=== PATIENT | male | born 1945 | race Caucasian/White ===

== ENCOUNTER 2016-05-02 07:55 | Inpatient (IN) | payer MEDICARE, OTHER ==
[~2016-05-02] VITALS: Ht 175.3 cm; Wt 101.2 kg
--- NOTE | ~2016-05-02 | ECH ---
Transthoracic Echocardiography Report (TTE) Demographics Patient Name RONNIE GOODRICH Date of Study 05/02/2016 Patient Number [id number] Visit Number [id number] Date of 1945 Room Number 301 Accession Number [id number] Gender Male Age 70 year(s) Referring Kathy PRATT Medical Esthetician Marian [facility] Physician Pedro Physician Interpreting King Martin Montiel MD Stereo Map Plotter Operator Physician Supervising Ordering Physician Kathy Vasquez MD/[facility] Nurse Stress Teaching Fellow Conclusions Summary Technically fair exam. The estimated left ventricular ejection fraction is 60-65%. Mild left ventricular posterior wall hypertrophy. Diastolic assessment reveals Grade I diastolic dysfunction. No significant valvular abnormalities. Procedure Type of Study TTE procedure:Echo Complete SF. Procedure Date Date: 05/02/2016 Start: 11:57 AM Technical Quality: Fair due to body habitus. Indications:Acute OR. Appropriate Use Criteria: 9 Height: 69 inches Weight: 224.87 pounds BSA: 2.17 m Rhythm: Within normal limits HR: 58 bpm BP: 128/67 mmHg Allergies - No known allergies. M-Mode/2D Measurements LV Diastolic Dimension: 4.06 cm LV Systolic Dimension: 3.47 cm LV Septum Diastolic: 0.97 cm LV PW Diastolic: 1.22 cm AO Root Dimension: 3.13 cm Cardiac Output: 4.49 l/min LA Dimension: 4.17 cm Cardiac Index: 2.07 l/min*m RV Diastolic Dimension: 3.16 cm LA volume index: 26 ml/m LVOT: 2.35 cm LVOT VTI: 17.84 cm RV Base: 4.1 cm LV Stroke volume: 77.34 ml RV Mid: 2.4 cm LV Stroke volume index: 35.64 ml/m RV Length: 7.6 cm TAPSE: 2.3 cm Doppler Measurements AV Peak Velocity: 1.2 m/s MV Peak E-Wave: 0.48 m/s AV Peak Gradient: 5.76 mmHg MV Peak A-Wave: 0.66 m/s AV Mean Gradient: 3.6 mmHg MV E/A Ratio: 0.73 LVOT Peak Velocity: 0.93 m/s MV P1/2t: 78.1 msec AV Area (Continuity):3.17 cm MV Deceleration Time: 277.6 msec MV Area (PHT): 2.82 cm PV Peak Velocity: 1.03 m/s PV Peak Gradient: 4.28 mmHg RA Area: 15.21 cm Findings Left Ventricle The left ventricle is normal in size . Mild left ventricular posterior wall hypertrophy. Diastolic assessment reveals Grade I diastolic dysfunction. Right Ventricle Normal right ventricle structure and function. Left Atrium Normal left atrial size. Right Atrium Normal right atrial size. Mitral Valve Normal mitral valve structure and function. Trivial mitral regurgitation by color Doppler. Aortic Valve The aortic valve is mildly sclerotic. Tricuspid Valve Normal tricuspid valve structure and function. Pulmonic Valve Normal pulmonic valve structure and function. Pericardial Effusion Epicardial fat pad noted. Miscellaneous Visualized portions of the aortic root and ascending aorta appear normal in size. Pleural Effusion No evidence of pleural effusion. Signature
--- NOTE | ~2016-05-02 | CATH ---
Cardiac Diagnostic + PCI Report Demographics Patient Name JOLEEN Montiel Gender Male Date of 1945 Age 70 year(s) Patient Number [id number] Date of Study 05/02/2016 Visit Number [id number] Room Number 424 Corporate ID Ht 175.26 cm Wt 102 kg Accession Number [id number] BSA 2.17 m kg/m Referring Odilon Rich MD Primary Physician Physician Juaquin Chavez MD Secondary Physician Physician Pedro Diagnostic Kathy PRATT Assisting Physician Physician Pedro Interventional Kathy PRATT Physician Draw Press Operator Physician Pedro Findings and Conclusions Diagnostic Findings and Conclusion Acute Inferior STEMI with Bradycardia. 100% occluded dRCA Normal LVEDP Diagnostic Recommendations Proceed with primary PCI of RCA Interventional Findings and Conclusion Successful PCI of 100% occluded dRCA with 2.75x20 Synergy RIAZ and buddhist of DIANA III flow. Interventional Recommendations Will consider a stress in the near future to assess the other lesions noted. Dual anti-platelet therapy for a minimum of 1 year. Follow up with [facility] provider 7 days post-discharge. Procedure Description The patient was brought emergently to the diagnostic cardiac catheterization laboratory in the fasting, non-sedated state. Informed consent was obtained in the written and verbal form after the risks and benefits were explained. The patient and had no further questions and agreed to proceed. The planned puncture-incision site(s) were shaved and prepped with ChloraPrep and draped in the usual sterile manner. Conscious sedation, supplemental oxygen, and pain control medications were delivered by a registered nurse under physician guidance. Surface ECG rhythm, blood pressure measurement, and pulse oximetry were monitored throughout the procedure. Arterial access. The right radial access site was infiltrated with lidocaine. The vessel was entered with the Seldinger technique. A 6 Fr sheath was advanced into the vessel and used for catheter placement. Selective right coronary angiography. A TIG catheter was advanced into the right coronary vessel ostium under fluoroscopic guidance. Contrast was injected by hand. Images were obtained in multiple projections. Selective left coronary angiography. A TIG catheter was advanced into the left coronary vessel ostium under Fluoroscopic guidance. Contrast was injected by hand. Images were obtained in multiple projections. Angioplasty and Stent Placement: A AL .75 guiding catheter was used to intubate the vessel. A Prowater 0.14 wire was then used to cross the lesion. A 2.0x12 Emerge balloon catheter was placed across the lesion and inflated. The balloon catheter was then removed. A 2.75x20 Synergy Drug Eluting Stent was placed and inflated. Post placement angiograms were performed. Left heart catheterization. A angled PIG catheter was advanced across the aortic valve to the left ventricle under fluoroscopic guidance. Resting hemodynamics were obtained. Arterial artery hemostasis was achieved using 11 cc in a TR Band. The patient was transferred to the ICU via cart accompanied by a laborer hoisting nurse. The patient left the laboratory in stable condition. Diagnostic Cath Status: Emergency Interventional Cath Status: Emergency Procedure Procedure Type Diagnostic procedure:Angiography:, Coronary Angios w/[facility] PCI procedure:Drug Eluting Coronary Stent:, RCA Indications: Acute SC, Hyperlipidemia, Hypertension and Diabetes. The procedure was explained in detail to the patient. Risks, complications and alternative treatments were reviewed. Written consent was obtained. Medications Reviewed with Patient prior to Procedure. Complications: No Complication. Angiographic Findings Dominance: Right Cardiac Arteries and Lesion Findings LMCA: Normal (0% Stenosis). LAD: Abnormal. Lesion on Mid LAD: 20% stenosis . Lesion on Mid LAD: Distal subsection.70% stenosis . Lesion on 1st Diag: Mid subsection.70% stenosis . LCx: Abnormal. Lesion on Mid CX: 70% stenosis . RCA: Abnormal. Lesion on Dist RCA: 100% stenosis 20 mm length reduced to 0%. Pre procedure DIANA 0 flow was noted. Post Procedure DIANA III flow was present. The guidewire cross was successful.Culprit lesion. Treatment results:Interventional treatment was successful. Devices used - PROWATER WIRE 0.014" X 180CM. Number of passes: 1. - CATH BAL RX EMERGE 2.0X12. 1 inflation(s) to a max pressure of: 8 janice. - CATH STENT SYNERGY 2.75 X 20. 1 inflation(s) to a max pressure of: 16 janice. Lesion on Prox RCA: 30% stenosis . Lesion on Mid RCA: 60% stenosis . Coronary Tree Procedure Data Procedure Date Date: 05/02/2016Start: 08:19 AMEnd: 09:22 AM Entry Locations - Percutaneous access was performed through the Right Radial artery (Primary location). A 6 Fr sheath was inserted. Hemostasis was successfully obtained using a TR band. Closure Comments: 11 cc air in band. Procedure Medications Order and Administration + + + + + !Time !Medication !Dosage !Route ! + + + + + !05/02/2016 !SF Post Radial Cocktail: 200mcg ! !I.A. ! !08:20 AM !Nitro, 2.5 Verapamil ! ! ! + + + + + !05/02/2016 !Brilinta (Ticagrelor) (ACC_20) !180 mg !P.O. ! !08:26 AM ! ! ! ! + + + + + !05/02/2016 !Heparin (ACC_3) !3000 units !I.V. ! !08:26 AM ! ! ! ! + + + + + !05/02/2016 !Integrilin (ACC_7) !180 mcg/kg !I.V. bolus! !08:26 AM ! ! ! ! + + + + + !05/02/2016 !Integrilin (ACC_7) !2 mcg/kg/min!I.V. drip ! !08:28 AM ! ! ! ! + + + + + !05/02/2016 !Integrilin (ACC_7) !180 mcg/kg !I.V. bolus! !08:37 AM ! ! ! ! + + + + + !05/02/2016 !Nitroglycerin !200 mcg !I.C. ! !08:38 AM ! ! ! ! + + + + + Devices Used - A6F TIG CATHETERwas used for:Right coronary angiography. - AGUIDE CATHETER 6FR AL .075 100CMwas used for:RCA Intervention. - ACATH 6FR PIG 145 110CM CATHETERwas used for:LV Pressures. Contrast Material - Isovue 08908 ml Fluoroscopy Time: Diagnostic: 3:54 minutes. Total: 3:54 minutes. Fluoroscopy Dose: Diagnostic: 1031 mGy. Total: 1031 mGy. Estimated Blood Loss: 5 ml. Medical History Allergies - No known allergies. Risk Factors The patient risk factors include:hypercholesterolemia, hypertension, insulin-treated diabetes mellitus, last creatinine: 1.4 mg/dl, creatinine clearance: 70.83 ml/min and dyslipidemia. Admission Data Admission Date: 05/02/2016 Admission Time: 08:51 AM Admit Source: Emergency department Insurance Payors: Medicare. Clinical Evaluation Leading to Procedure Diagnosed on 05/02/2016 08:00 AM. - The patient's CAD presentation was assessed as: STEMI.The symptom onset was first noted on 05/02/2016 07:25 AM Hemodynamics Condition: Rest Estimated: Heart Rate: 32 bpm Pressures (mmHg) +-----+ + !Site !Pressure ! +-----+ + !AO !120/51 (73) ! +-----+ + Shunts Oxygen Values O2 Capacity 206.72 Condition: Post Angioplasty Estimated: Heart Rate: 75 bpm Pressures (mmHg) +-----+ + !Site !Pressure ! +-----+ + !AO !128/57 (90) ! +-----+ + !LV !108/0 ,2 ! +-----+ + !AO !105/51 (73) ! +-----+ + !LV !107/0 ,3 ! +-----+ + Valve Gradients and Areas + +---------+---------+---------+ +---------+ + !Valve !Peak !Mean !Area !Index !Flow !Source ! + +---------+---------+---------+ +---------+ + !Aortic !2 !0 ! ! ! ! ! + +---------+---------+---------+ +---------+ + !Aortic !2 !0 ! ! ! ! ! + +---------+---------+---------+ +---------+ + Shunts Oxygen Values O2 Capacity 206.72 Discharge Data Discharge Date: 05/04/2016 Hospital Status: Inpatient Signatures
[2016-05-05] MEDS ORDERED: METFORMIN HCL1000 M1 PO (15:04)
[2016-05-05] MEDS ORDERED: ZYLOPRIM-DPS300 MG PO (15:04)
[2016-05-05] MEDS ORDERED: DIOVAN160 MG PO (15:04)
[2016-05-05] MEDS ORDERED: DILTIAZEM 24HR300 MG PO (15:04)
[2016-05-05] MEDS ORDERED: METOPROLOL TART25 MG PO (15:04)
[2016-05-05] MEDS ORDERED: LYRICA50 MG PO (15:04)
[2016-05-05] MEDS ORDERED: NOVOLIN R SQ (15:05)
[2016-05-05] MEDS ORDERED: [UNRECOGNIZED DRUG - OTHER] SQ (15:05)
[2016-05-05] MEDS ORDERED: HUMULIN R100 UNIT/1 SQ (15:05)
[2016-05-05] MEDS ORDERED: GATIFLOXACIN2.5 ML OS (15:06)
[2016-05-05] MEDS ORDERED: ASA CHILDREN'S81 MG PO (15:06)
[2016-05-05] MEDS ORDERED: PRED FORTE 1% DP5 ML OS (15:06)
[2016-05-05] MEDS ORDERED: PROLENSA3 ML OS (15:06)
[2016-05-05] MEDS ORDERED: LIPITOR DPS20 MG PO (15:07)
[2016-05-05] MEDS ORDERED: BRILINTA90 MG PO (15:07)
[2016-05-05] MEDS ORDERED: PEPCID DPS20 MG PO (15:07)
--- NOTE | 2016-05-10 12:50 | CO ---
ADMIT: 05/02/2016 RM/LOC: 301 [facility] MR#: [id number] [address] [address] JOLEENRONNIE [address] [place] [address] Consultation SEX: M AGE: 70 : 1945 DATE OF CONSULTATION: 05/02/2016 ATTENDING PHYSICIAN: Pedro Chavez CONSULTING PHYSICIAN: Benji Donald MD REASON FOR CONSULTATION: Relationship Management Lead with medical management, diabetes management. HISTORY OF PRESENT ILLNESS: The patient is a very pleasant 70-year-old gentleman with past medical history of hypertension, hyperlipidemia, type 2 diabetes mellitus, who presents to [facility] Emergency Room today with nausea, arm pain, and chest discomfort and dyspnea, was found to be having an ST-elevation SC, inferior in nature, taken to the pathology laboratory aides teacher. He was noted to be bradycardic on admission as well, and was found to have significant right-sided lesions as well as other significant right coronary lesions, and he underwent drug-eluting stent placement. His bradycardia improved and he was transferred to the ICU. He was noted to have to be hypercalcemic with calcium corrected near 12 and I am asked to see him for assistance in medical management and diabetes management, and also to address his hypercalcemia. Overall, the patient is feeling better. No more chest pain or shortness of breath. He is feeling better. No nausea and vomiting are noted. He has no new edema, no recent medication changes noted and overall, notes his blood sugars have been running well. He follows with Endocrinology. The patient notes he has already eaten and is feeling better and ready to make some lifestyle changes to help his coronary artery disease. PAST MEDICAL HISTORY: 1. Hypertension. 2. Obstructive sleep apnea, on CPAP. 3. Allergic rhinitis. 4. Painful peripheral diabetic neuropathy. 5. Diabetes mellitus type 2. 6. History of gout. 7. Erectile dysfunction. 8. History of DVT. 9. Hyperlipidemia. 10.History of kidney stones. 11.Recent cataract extractions. ALLERGIES: HE HAS A PROTONIX ALLERGY. CURRENT MEDICATIONS: Include: 1. Metoprolol. 2. Diltiazem. 3. Metformin. 4. Valsartan. 5. Simvastatin. 6. Allopurinol. ADMIT: 05/02/2016 RM/LOC: 301 [facility] MR#: [id number] [address] [address] RONNIE GOODRICH Tiana [address] [place] [address] Consultation SEX: M AGE: 70 : 1945 7. Lyrica. 8. Humulin U 500. 9. Aspirin. 10.Prednisolone. 11.Gatifloxacin. 12.Prolensa eyedrops. PAST SURGICAL HISTORY: Includes cholecystectomy and laser lithotripsy for kidney stones. FAMILY HISTORY: Father with lung cancer and maternal grandmother with diabetes. SOCIAL HISTORY: He is a nonsmoker, occasional drinker. He is . 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 REVIEW OF SYSTEMS: As noted above. All systems are reviewed and are negative. VITAL SIGNS: 97, 68, 13, 131/68, 96% on room air. GENERAL: This is an overweight gentleman. He is in no apparent distress. He is alert and oriented x3. Cooperative and pleasant to examiner. He appears stated age. HEENT: Normocephalic and atraumatic. Mucous membranes little dry. NECK: Supple. LUNGS: Clear. HEART: Regular. ABDOMEN: Soft, nontender, and nondistended. Positive bowel sounds throughout. EXTREMITIES: Show chest some trace to 1+ ankle and calf edema. He has good peripheral pulses. His skin appears normal his neurologic exam shows cranial nerves intact no focal deficits are noted. LABORATORY AND DIAGNOSTIC STUDIES: His lab work showed hemoglobin of 15.2, white count is 14.6, sodium 142, potassium 4.6, BUN is 20 creatinine 1.4 his bicarb is 18 with a chloride of 111, his calcium was 11.9, corrected to 12.2, his CK was 139, his MB was 3.1, his troponin was 0.135 his EKG initially did show a heart rate of 36 beats per minute with noted ST elevation in II, III, and aVF. We did have reciprocal changes in AVR and her depression in AVR and aVL. His EKG post reperfusion showed a rate of [address] elevation resolving. ASSESSMENT AND PLAN: 1. ST-segment elevation myocardial infarction. 2. Number one acute coronary syndrome/ST segment elevation SC. 3. Coronary artery disease, status post percutaneous coronary intervention drug-eluting stent to his RCA. 4. Bradycardia, resolved. 5. Hypercalcemia. 6. Diabetes mellitus type 2. 7. Hypertension. ADMIT: 05/02/2016 RM/LOC: 301 [facility] MR#: [id number] [address] [place] [id number] RONNIE GOODRICH [address] [place] [address] Consultation SEX: M AGE: 70 : 1945 8. Hyperlipidemia. 9. Showed strep he has. 10.Gastroesophageal reflux disease. At this point, the patient is feeling much better. Much thanks to Dr. Chavez for his assistance. Risk factor modification, aspirin statin, Brilinta we need to make sure we continue to control his diabetes and heart rates are better. We will plan on sliding scale insulin for right now. We are not any use his U 500. Discussed diet exercise weight loss and lifestyle modifications with the patient. He has little hypercalcemia today and I am going to grab a sedimentation rate and CRP. We have already checked a vitamin her vitamin D and PTH are pending. We are going to grab SPEP and serum free light chains. Right now, it does sound like he uses some Tums on a regular basis. I wonder if that could be our culprit as he says some days he will use up to six so we will investigate that will keep him on some Pepcid for reflux and dyspepsia, have him on his home CPAP and will follow along throughout this hospitalization. Benji Donald MD/ leonela JOB #: [id number] CC: Pedro Chavez, Attending Physician Benji Donald, Family Physician
--- NOTE | 2016-05-10 14:49 | HP ---
ADMIT: 05/02/2016 RM/LOC: 301 [facility] MR#: [id number] [address] [address] RONNIE GOODRICH [address] [place] [address] History and Physical SEX: M AGE: 70 : 1945 Corrected: 05/02/2016 1139 tone DATE OF SERVICE: REASON FOR ADMISSION: Inferior ST-elevation myocardial infarction. HISTORY OF PRESENT ILLNESS: Ronnie is a 70-year-old male, who has no prior cardiac history, but does have history of hypertension, hyperlipidemia, and diabetes, who presented this morning with acute inferior ST-elevation myocardial infarction. He states about 4 a.m., he awoke. He had some discomfort in his arms but did not have any chest pain. He said he was able to go back to sleep. He then awoke and still said he just was not quite comfortable but then had sudden onset of a pressure in his chest about 30 minutes prior to arrival, which was about 7:30 a.m. He was short of breath and sweaty. He had his drive him to the emergency room. His initial EKG showed inferior ST elevation myocardial infarction with bradycardia, which appeared to be sinus bimal with heart rate of 36 but the P waves are difficult to identify and it may have been a two-to-one heart block. We were called emergently by Dr. Echevarria to evaluate him in the emergency room. He says otherwise, he has been feeling well recently. He just had cataract surgery on Friday. PAST MEDICAL HISTORY: 1. Hypertension. 2. Hyperlipidemia. 3. Diabetes. 4. Erectile dysfunction. ALLERGIES: NO KNOWN DRUG ALLERGIES. MEDICATION: 1. Lyrica 50 mg at bedtime. 2. Metformin 1000 mg twice a day. 3. Humulin subcutaneous twice a day. 4. Simvastatin 20 mg at bedtime. 5. Allopurinol 300 mg daily. 6. Metoprolol 25 mg twice a day. 7. NovoFine three times a day. 8. Diovan 80 mg daily. 9. Cardizem CD 300 mg daily. 10.Aspirin 81 mg daily. 11.Viagra 50 mg p.r.n. SOCIAL HISTORY: He is . He is retired from [employer]. He is accompanied by his . He denies any smoking history. No illicit drug use. FAMILY HISTORY: He said his mother had a stroke at an older age. Otherwise, no family history of early coronary artery disease. ADMIT: 05/02/2016 RM/LOC: 301 [facility] MR#: [id number] [address] [address] RONNIE GOODRICH [address] [place] [address] History and Physical SEX: M AGE: 70 : 1945 REVIEW OF SYSTEMS: GENERAL: Denies any fever, chills, or sweats. Up until this morning, he was in his normal state of health. No recent weight changes. HEENT: No visual changes. He did have cataract surgery on Friday 4 days ago. He does have slightly-decreased hearing and has some sinus congestion. CARDIAC: As per HPI. PULMONARY: Denies any hemoptysis. No cough. GI: No nausea, vomiting, or diarrhea. : No dysuria or hematuria. MUSCULOSKELETAL: No joint pains. SKIN: No rashes. ENDOCRINE: Does have diabetes. No history of hypothyroidism. HEMATOLOGIC/ONCOLOGIC: No history of anemia or cancer. PSYCHIATRIC: Denies any anxiety or depression. REVIEW OF SYSTEMS: All other systems reviewed and negative. PHYSICAL EXAMINATION: VITAL SIGNS: His blood pressure was 100/70, heart rate was 35, respirations were 20, and he is saturating 93%. GENERAL: He was in moderate distress but he was alert and oriented and conversant. HEENT: Normocephalic and atraumatic. Moist mucous membranes. NECK: Supple. No lymphadenopathy. No carotid bruits were auscultated. HEART: Regular rate and rhythm. LUNGS: Clear to auscultation bilaterally. ABDOMEN: Obese, nontender and nondistended. EXTREMITIES: No cyanosis, clubbing, or edema. NEUROLOGIC: Cranial nerves II through XII intact. SKIN: There were no rashes. PSYCHIATRIC: He was alert, oriented and appropriate. DIAGNOSTIC DATA: EKG showed bradycardic rhythm with inferior-ST elevation myocardial infarction. IMPRESSION AND RECOMMENDATION: 1. Acute inferior ST-elevation myocardial infarction. 2. Hypertension. 3. Hyperlipidemia. 4. Diabetes. ADMIT: 05/02/2016 RM/LOC: 301 [facility] MR#: [id number] [address] [place] [id number] RONNIE GOODRICH [address] [place] [address] History and Physical SEX: M AGE: 70 : 1945 5. Bradycardia, secondary to acute myocardial infarction. RECOMMENDATIONS: He presented quickly from symptom onset. I discussed the risks and benefits of proceeding directly to primary PCI, and him and his agree to proceed emergently. He understands the risks, including but limited to, stroke, heart attack, , bleeding, infection, renal failure. The patient understands these risks and agrees to proceed. We will have further recommendations as his care progresses. Pedro Chavez MD/ leonela JOB #: [id number] CC: Pedro Chavez, Attending Physician Pedro Chavez, Family Physician Benji Donald MD Corrected: 05/02/2016 1139 tone
--- NOTE | 2016-05-11 06:57 | ER ---
ADMIT: 05/02/2016 RM/LOC: 301 [facility] MR#: [id number] [address] [address] RONNIE GOODRICH [address] [place] [address] Emergency Room Report SEX: M AGE: 70 : 1945 DATE: 05/02/2016 CHIEF COMPLAINT: Chest pain. HISTORY OF PRESENT ILLNESS: The patient is a 70-year-old gentleman, presents to the ER, complaining of chest pain that began about 20 minutes ago. Prior to the chest pain complaints, he states that his arms are aching for the past several hours. Other than that, he has no other complaints. REVIEW OF SYSTEMS: Ten-point review of systems is done and otherwise, negative except as in HPI. PAST MEDICAL HISTORY: Significant for insulin-dependent diabetes, hypertension, hyperlipidemia. He has had a stress test done before but it has been a while and it was normal at that time. He has no known coronary artery disease. No arrhythmia history. No history of DVT or PE. PAST SURGICAL HISTORY: Surgeries none that I am aware of. MEDICATIONS: See nurse's note. ALLERGIES: SEE NURSE'S NOTE. SOCIAL HISTORY: The patient smoked many years ago. He said he quit over 30 years ago. PHYSICAL EXAMINATION: GENERAL: The patient is alert. He is uncomfortable in pain. HEENT: Head is atraumatic. Pupils are equal, round, and reactive to light. NECK: Supple. Trachea is midline. HEART: Bradycardic. LUNGS: Clear to auscultation. ABDOMEN: Soft. SKIN: Warm and dry. He has good pulses in all 4 extremities. They are equal but bradycardias present. He has no pedal edema. No calf tenderness. He is not diaphoretic. EKG shows sinus bradycardia, rate of 37. He does have ST-elevation in II, III, and AVF. EMERGENCY DEPARTMENT COURSE: I saw the patient presents to the window with complaint of chest pain. We immediately got him back to one of our ADMIT: 05/02/2016 RM/LOC: 301 [facility] MR#: [id number] [address] [address] RONNIE GOODRICH [address] [place] [address] Emergency Room Report SEX: M AGE: 70 : 1945 examination rooms and put him on the monitor, which was concerning for ischemic changes and we got an EKG, which confirms ST-elevation. I contacted Dr. Chavez, who came to the ER, evaluated the patient and the patient was taken directly to the can labeler from the ER. He was given 0.5 mg of atropine in the Emergency Department. No change in his bradycardia. I contacted Dr. Donald, who is the patient's primary care physician, made him aware of the patient was being admitted for a STEMI. DIAGNOSES: 1. ST-elevation myocardial infarction. 2. Bradycardia. 3. Chest pain. Wade Echevarria MD/ leonela JOB #: [id number] CC: Pedro Chavez MD, Attending Physician Pedro Chavez MD, Family Physician
--- NOTE | 2016-06-11 09:52 | DS ---
ADMIT: 05/02/2016 RM/LOC: 424 [facility] MR#: [id number] [address] [id number] RONNIE GOODRICH [address] [place] [address] General Discharge Summary SEX: M AGE: 70 : 1945 CORRECTED: 05/21/2016 0651 [facility] ADMISSION DATE: 05/02/2016 DISCHARGE DATE: 05/04/2016 FINAL DIAGNOSES: 1. Inferior ST elevated myocardial infarction. 2. Coronary artery disease. 3. Type 2 diabetes. 4. Bradycardia. 5. Essential hypertension. 6. Hyperlipidemia. 7. Gastroesophageal reflux disease. 8. Hypercalcemia. 9. Obstructive sleep apnea. 10.Personal history of nicotine dependence. CONSULTATIONS: Dr. Benji Donald for primary care and diabetes management on 05/02/2016. DIAGNOSTICS/PROCEDURES: Chest x-ray, 05/03/2016, shows normal heart and lungs, negative portable chest. Heart catheterization, 05/02/2016, by Dr. Pedro Chavez due to acute inferior ST elevated myocardial infarction with bradycardia showed 100% occluded distal RCA. He did have a PCI of the RCA with a 2.75 x 20 mm Synergy drug-eluting stent with caodaism of DIANA-3 flow. No immediate complications. He also did have other nonobstructive disease including a 70% distal LAD and a 70% mid 1st diagonal along with a 70% mid circumflex stenosis. He had a 30% proximal and a 60% mid RCA lesion along with a 20% mid LAD lesion. Left main was normal. Echocardiogram, 05/02/2016, read by Dr. Martin Shelton showed an EF of 60-65%, mild left ventricular posterior wall hypertrophy. White blood count did elevate to 14.6, hemoglobin dropped to 13.1, platelets remained stable. Elevated blood glucose. Albumin was slightly low at 3.1. AST was slightly elevated at 60. HDL was 34. LDL was 48. GFR dropped to 55. CK peak of 369, MB peak of 28.7, relative index peak of 7.8. Calcium was elevated at 11.9. Calcium corrected was 12.1. Troponin peak of 0.135. CRP was 0.43. His total protein electrophoresis was normal except for a slightly low on BG of 0.7. [place] FLC was elevated to 2.34. Lambda FLC was normal at 1.31. [place]/lambda FLP ratio was elevated at 1.79. Vitamin D was low at 12. PTH was low at 6.0. HOSPITAL COURSEThe patient admitted to the emergency room after coming in complaining of chest discomfort. He did have EKG changes consistent with an inferior ST elevated myocardial infarction. He had no prior cardiac history. He did have risk factors such as hypertension, hyperlipidemia, and diabetes. He had woke up at about 4:00 that morning with some discomfort in his arms, but he did not have any chest pain at that time. He went back to sleep and then woke up about 7:30 in the morning with chest pressure. He was short of breath and sweaty. He had his drive him to the emergency room. His initial EKG showed inferior ST elevation and bradycardia. This appeared to be sinus bradycardia with a heart rate of about 36. It was difficult to identify ADMIT: 05/02/2016 RM/LOC: 424 [facility] MR#: [id number] [address] [place] [id number] RONNIE GOODRICH [address] [place] [address] General Discharge Summary SEX: M AGE: 70 : 1945 P waves; however, it may have been a 2:1 heart block. The emergency room appropriately called Cardiology emergently, and he was taken to the laborer electroplating. Prior to being taken to the laborer electroplating risks and benefits were discussed. In the emergency room, he was given atropine for his bradycardia, which did not change anything. In the laborer electroplating, he was found to have a 95% mid RCA lesion, which was stented. He did have other residual disease also. The next day, he was feeling better and was transferred to PCU. His primary care provider did see him for hypercalcemia. SPEP was ordered as were other labs. His diabetes was managed for his primary care. The next day, he was feeling well with no chest discomfort or other complaints. He was doing well on his medications. He was felt okay to discharge if okay with his primary care. Schedule follow up in 1 week with NOHEMI Pope at [facility] and Dr. Chavez in 4 weeks. MEDICATIONSOn dismissal include: 1. Aspirin 81 mg p.o. daily. 2. Brilinta 90 mg p.o. b.i.d. 3. Diovan 160 mg p.o. daily. 4. Lipitor 40 mg p.o. at bedtime. 5. Lopressor 25 mg p.o. b.i.d. 6. Lyrica 50 mg p.o. at bedtime. 7. Pepcid 20 mg p.o. b.i.d. 8. Prednisolone eye drops. 9. Gatifloxacin eyedrops. 10.Prolensa eye drops. 11.Diltiazem CD 300 mg. 12.Metformin ER 1000 mg b.i.d. 13.Lyrica 50 mg q.p.m. 14.Allopurinol 300 mg daily. 15.Aspirin 81 mg daily. DISCHARGE DISPOSITIONHome. DISCHARGE CONDITIONStable. Vital signs on discharge; blood pressure 128/65, O2 saturation of 97%, pulse of 80, respirations of 16, and temp of 96.3. KATE Hess / Pedro Chavez MD / leonela JOB #: [id number] CC: Pedro Chavez MD, Attending Physician Benji Donald MD, Family Physician CORRECTED: 05/21/2016 0651 [facility]
== END 2016-05-04 14:20 | disposition home or self-care (01) | DRG 247 ==
LOC: ER 07:55 → SSS 08:10 → 3ICU 08:51 → 4PCU 05-03 15:11
PROVIDERS: ADMIT Internal Medicine Cardiovascular Disease
PROC: 027034Z Dilation of Coronary Artery, One Artery with Drug-eluting Intraluminal Device, Percutaneous Approach (ICD-10-PCS; principal; 2016-05-02)
PROC: B2111ZZ Fluoroscopy of Multiple Coronary Arteries using Low Osmolar Contrast (ICD-10-PCS; principal; 2016-05-02)
PROC: 4A023N7 Measurement of Cardiac Sampling and Pressure, Left Heart, Percutaneous Approach (ICD-10-PCS; principal; 2016-05-02)
DX: I21.19 ST elevation (STEMI) myocardial infarction involving other coronary artery of inferior wall (principal); E11.42 Type 2 diabetes mellitus with diabetic polyneuropathy; R00.1 Bradycardia, unspecified; I10 Essential (primary) hypertension; E78.5 Hyperlipidemia, unspecified; K21.9 Gastro-esophageal reflux disease without esophagitis; I25.10 Atherosclerotic heart disease of native coronary artery without angina pectoris; H91.90 Unspecified hearing loss, unspecified ear; E83.52 Hypercalcemia; G47.33 Obstructive sleep apnea (adult) (pediatric); J30.9 Allergic rhinitis, unspecified; Z79.4 Long term (current) use of insulin; Z79.84 Long term (current) use of oral hypoglycemic drugs; Z87.891 Personal history of nicotine dependence; Z79.82 Long term (current) use of aspirin